=== PATIENT | male | born 1975 | race Caucasian/White ===

== ENCOUNTER 2016-05-12 22:06 | Emergency (ER) | payer SELFPAY ==
--- NOTE | ~2016-05-12 | ER ---
PATIENT'S NAME: CINTIA SEALS [facility] AGE: 40 Y [address] ROOM: [place] [address] LOCATION: [facility] ADMIT DATE: 05/12/2016 ER/Outpatient Report DISCHARGE DATE: 05/13/2016 FAMILY PHYSICIAN: PHYSICIAN, NO ATTENDING PHYSICIAN: Cintia Mathew Time of Arrival: Admission date and time documented on the medical record. Time of Evaluation: I saw the patient at 2330 hours. CHIEF COMPLAINT: Right flank pain and right low back pain. HISTORY OF PRESENT ILLNESS: The patient is a 40-year-old male, who has had right flank pain and lower back pain for about 24 hours. Has started to become more painful this evening, presented to the emergency room for evaluation by private vehicle. No nausea, vomiting, or diarrhea. No urinary frequency, urgency, or dysuria. No incontinence. The patient tonight could not find any comfortable position to relieve his pain. No chest pain or shortness of breath. No lightheadedness, dizziness, syncope, or near syncope. No fall or trauma. No recent cold, coughs, flus, fever, chills, or sweats. No headache or eyes, ears, nose, throat, or neck pain. No joint or muscle swelling, redness, or pain. No skin eruptions or rash. No history of neuro changes or psych issues. Does have insulin-dependent diabetes mellitus. HOME MEDICATIONS: See attached medication list. ALLERGIES: PENICILLIN. SOCIAL HISTORY: Nonsmoker, nondrinker. SIGNIFICANT PAST MEDICAL HISTORY: Insulin-dependent diabetes mellitus. OPERATIONS: None. REVIEW OF SYSTEMS: All systems reviewed by me are negative with the exception of those discussed in the history of present illness. PHYSICAL EXAMINATION: PATIENT'S NAME: CINTIA SEALS [facility] AGE: 40 Y [address] ROOM: [place], [place] [address] LOCATION: [facility] ADMIT DATE: 05/12/2016 ER/Outpatient Report DISCHARGE DATE: 05/13/2016 FAMILY PHYSICIAN: PHYSICIAN, NO ATTENDING PHYSICIAN: Cintia Mathew VITAL SIGNS: Temperature 97.9, tympanic; pulse 67; respirations 18; blood pressure 134/65; and O2 saturations on room air was 95%. HEAD: Normocephalic. EYES, EARS, NOSE, and THROAT: Clear. Mucous membranes moist. NECK: No nuchal rigidity. No thyromegaly or cervical adenopathy. SPINE: Nontender. No deformity. LUNGS: Clear. HEART: Regular. ABDOMEN: Soft. Some tenderness in the right flank and a little bit into the lower back. No palpable masses. No organomegaly. No CVA tenderness. EXTREMITIES: Intact. NEUROVASCULAR: Intact. SKIN: Clear. LABORATORY DATA: Urinalysis was clear, 0 to 2 whites, negative reds, 0 to 2 epithelial cells, negative bacteria per high-powered field, nitrites negative. CMS was normal except for a slightly elevated glucose 103, low calcium of 8.4. White count is 9700, 47 segs, 43 lymphs, 9 monos, 2 eos, 1 baso; hemoglobin is 14.9 with a hematocrit of 43.6, platelet count is 242,000. CT scan of the abdomen and pelvis with renal stone protocol showed no evidence of free air or free fluid, bowel obstruction. There are no intrarenal stones or ureteral stones. No evidence of hydroureter or hydronephrosis. CT scan was read by Radiology, see dictated/transcribed report. IMPRESSION: Right flank pain, low back pain, etiology uncertain. No evidence of intraabdominal abnormalities. No evidence of ureteral stones, hydronephrosis, hydroureter, or urinary tract infection. This may just be musculoskeletal. PLAN: The patient was dismissed home. Observation. Activity as tolerated. Avoid heavy lifting, pushing, or pulling. Heating pad to sore areas of the back intermittently as needed. [place] 7.5/325 as needed for pain, #20. Flexeril 10 mg 3 times a day, #30. Follow up with personal physician in 7 to 10 days if no improvement or sooner if needed. Discussion ensued with the patient and his mother regarding my findings and recommendations, they understand. CINTIA MATHEW MD SDS/modl PATIENT'S NAME: CINTIA SEALS [facility] AGE: 40 Y [address] ROOM: [place] [address] LOCATION: [facility] ADMIT DATE: 05/12/2016 ER/Outpatient Report DISCHARGE DATE: 05/13/2016 FAMILY PHYSICIAN: RIGOBERTO MENON ATTENDING PHYSICIAN: Cintia Mathew /[id number] d: 05/13/16 0216 t: 05/13/16 1823, OUTPATIENT REPORT
[2016-05-12 23:43] LABS: BILIRUBIN URINE NEGATIVE (NEGATIVE); BLOOD URINE NEGATIVE /UL (NEGATIVE); GLUCOSE URINE NEGATIVE (NEGATIVE); KETONE URINE NEGATIVE (NEGATIVE); LEUKOCYTES URINE 25 /UL (NEGATIVE); NITRITE URINE NEGATIVE (NEGATIVE); PROTEIN URINE NEGATIVE (NEGATIVE); SPEC GRAVITY URINE 1.025 (1.003-1.035); UROBILINOGEN URINE NORMAL (NORMAL)
[2016-05-12 23:46] LABS: COLOR URINE YELLOW (YELLOW); TURBIDITY URINE CLEAR (CLEAR)
[2016-05-12 23:54] LABS: BASOPHIL # 0.1 K/uL (0.0-0.2); BASOPHIL % 0.5 %; EOSINOPHIL # 0.2 K/uL (0.0-0.5); EOSINOPHIL % 1.6 %; HEMATOCRIT 43.6 % (37.0-53.0); HEMOGLOBIN 14.9 g/dL (12.0-17.0); IMMATURE GRANULOCYTE % 0.2 %; LYMPHOCYTE # 4.2 K/uL (0.8-4.0); LYMPHOCYTE % 42.7 %; MCH 29.4 pg (27.0-34.0); MCHC 34.2 gm/dL (32.0-36.5); MCV 86.2 fl (83.0-98.0); MONOCYTE # 0.8 K/uL (0.0-1.0); MONOCYTE % 8.5 %; MPV 9.4 fl (9.4-12.4); NEUTROPHIL # (ANC) 4.5 K/uL (1.4-9.0); NEUTROPHIL % 46.5 %; NRBC % 0 /100WBC (0-0.00); PLATELET COUNT 242 K/uL (150-450); RBC 5.06 M/uL (4.00-6.00); RDW-CV 13.1 % (11.9-14.6); WBC 9.7 K/uL (4.0-11.0)
[2016-05-12 23:59] LABS: BACTERIA URINE NEGATIVE (NEGATIVE); EPITHELIAL URINE 0-2 #/HPF (NEGATIVE); RBC URINE NEGATIVE #/HPF (NEGATIVE); WBC URINE 0-2 #/HPF (NEGATIVE)
[2016-05-13 00:10] LABS: ALBUMIN 3.6 gm/dL (3.5-5.0); ALK PHOS 108 IU/L (33-138); ALT 43 IU/L (12-78); AST 23 IU/L (10-40); BLOOD UREA NITROGEN 19 mg/dL (6-24); CALCIUM 8.4 mg/dL (8.5-10.5); CHLORIDE 109 mMol/L (96-110); CO2 25 mMol/L (22-32); ESTIMATED GFR (MDRD EQUATION) > 60; SODIUM 143 mMol/L (135-145); TOTAL BILIRUBIN 0.2 mg/dL (0.0-1.5); TOTAL PROTEIN 7.1 g/dL (6.0-8.4)
== END 2016-05-13 01:12 | disposition disaster alternative care site (69) ==
LOC: GMED 22:06
PROVIDERS: Emergency Medicine
DX: M54.5 Low back pain (principal); R10.9 Unspecified abdominal pain; E11.9 Type 2 diabetes mellitus without complications; Z88.0 Allergy status to penicillin